=== PATIENT | female | born 1960 | race Caucasian/White ===

== ENCOUNTER 2018-10-03 07:53 | Day surgery (SDC) | payer OTHER ==
[~2018-10-03] VITALS: Ht 162.6 cm; Wt 59.3 kg
[2018-10-03 08:31] VITALS: BP 225/103
[2018-10-03] MEDS ORDERED: LACTATED RINGERS 1,000 ML IV SCH (08:35)
[2018-10-03] MEDS ORDERED: PLEASE ENTER HEIGHT AND WEIGHT MC SCH (09:00)
[2018-10-03] MEDS ORDERED: NO MED (09:11)
[2018-10-03] MEDS ORDERED: ONDANSETRON 2MG/ML, 2ML ONE (10:17)
[2018-10-03] MEDS ORDERED: NEOSTIGMINE 1 MG/ML, 10ML ONE (10:17)
[2018-10-03] MEDS ORDERED: GLYCOPYRROLATE 0.2MG/1ML, 5ML ONE (10:17)
[2018-10-03] MEDS ORDERED: ROCURONIUM 10 MG/ML,10ML ONE (10:17)
[2018-10-03] MEDS ORDERED: PROPOFOL 10 MG/ML, 20ML ONE (10:17)
[2018-10-03] MEDS ORDERED: DEXAMETHASONE 4 MG/ML, 1ML ONE (10:17)
[2018-10-03] MEDS ORDERED: METOPROLOL 1 MG/ML, 5ML ONE (10:17)
[2018-10-03] MEDS ORDERED: PROMETHAZINE 25 MG/ML, 1ML IM PRN ×2 (10:30)
[2018-10-03] MEDS ORDERED: ACETAMINOPHEN 325 MG TABLET PO PRN (10:30)
[2018-10-03] MEDS ORDERED: PROMETHAZINE 25 MG SUPP PR PRN (10:30)
[2018-10-03] MEDS ORDERED: ONDANSETRON ODT 8 MG PO PRN (10:30)
[2018-10-03] MEDS ORDERED: ONDANSETRON 2MG/ML, 2ML IV PRN (10:30)
[2018-10-03] MEDS ORDERED: HALOPERIDOL 5 MG/ML IV PRN (10:30)
[2018-10-03] MEDS ORDERED: PROMETHAZINE 25 MG/ML, 1ML IV PRN (10:30)
[2018-10-03] MEDS ORDERED: FENTANYL PF 100 MCG/2ML IV PRN (10:30)
[2018-10-03] MEDS ORDERED: PROMETHAZINE 12.5 MG SUPP PR PRN (10:30)
[2018-10-03] MEDS ORDERED: OMNIPAQUE 350 MG/ML, 50 ML BOTTLE ONE (12:02)
== END 2018-10-03 12:15 | disposition home or self-care (01) ==
LOC: OUT 07:53
PROVIDERS: ATTEND Internal Medicine
DX: K83.09 Other cholangitis (principal); Z88.5 Allergy status to narcotic agent; Z88.8 Allergy status to other drugs, medicaments and biological substances; Z98.890 Other specified postprocedural states
CPT/HCPCS: 43276; 74328; J1100; J2405; J2704; J2710; J3490; J7120; Q9967